=== PATIENT | female | born 1945 | race Caucasian/White ===

== ENCOUNTER → 2018-07-27 12:09 | Outpatient (CLI) | payer OTHER, SELFPAY ==
--- NOTE | 2018-07-27 | DI.MRI.S_ITS ---
PROCEDURE: MR LUMBAR SPINE WO CON INDICATIONS: LUMBAR SPINE PAIN TECHNIQUE: Noncontrast sagittal T1 spin echo and T2 fast echo, sagittal STIR, axial T1 and T2 fast spin echo through the lumbar spine. In cases with scoliosis, additional coronal T2 fast spin echo may be performed. COMPARISON: [facility], CR, XR LUMBAR SPINE 2 OR 3 VIEWS, 06/30/2018, 14:03. FINDINGS: Image quality: Excellent. Alignment and Curvature: Straightening of the normal lumbar lordosis. Bone Marrow: Diffuse endplate degenerative signal changes and numerous scattered small Schmorl's nodes although none of these demonstrate adjacent marrow edema. No acute vertebral body compression fractures. Spinal Cord: Conus medullaris terminates at the T12-L1 level. Visualized cord demonstrates normal signal and size. Paraspinous Soft Tissues: No paravertebral masses. L1-L2: Normal appearance. L2-L3: Normal appearance. L3-L4: Normal appearance. L4-L5: Large right paracentral disc protrusion, with associated moderate central canal narrowing. There is severe effacement of the right lateral recess, raising the possibility of impingement of the descending right L5 nerve root. Minimal narrowing of the left lateral recess. Bilateral facet arthropathy. No foraminal stenosis L5-S1: Central disc protrusion with mild partial effacement of both lateral recesses although symmetric appearance. Bilateral facet arthropathy. Mild central canal narrowing. No definite foraminal stenosis. IMPRESSION: Lower lumbar degenerative disease at L4-L5 and L5-S1, with moderate L4-L5 canal narrowing and severe right-sided subarticular narrowing as above. Mild L5-S1 canal narrowing. No definite foraminal stenosis. Dictated by: Rory Hadley M.D. on 07/27/2018 at 13:38 Approved by: Rory Hadley M.D. on 07/27/2018 at 13:47
== END ==
PROVIDERS: PCP Family Medicine; Visit Provider Orthopaedic Surgery Orthopaedic Surgery of the Spine
DX: M54.5 Low back pain (principal); M51.36 Other intervertebral disc degeneration, lumbar region; M51.37 Other intervertebral disc degeneration, lumbosacral region; M48.061 Spinal stenosis, lumbar region without neurogenic claudication; M48.07 Spinal stenosis, lumbosacral region
CPT/HCPCS: 72148

== ENCOUNTER → 2018-08-31 12:43 | Outpatient (CLI) | payer OTHER, SELFPAY ==
[2018-08-31 12:59] LABS: Hemoglobin 13.6 g/dL (12.0-16.0); Mean Corpuscular HGB Conc 33.2 % (30-36); Mean Corpuscular Hemoglobin 30.6 PG (26-34); Mean Corpuscular Volume 92.3 fL (80-100); Platelet Count 264 X10^3/uL (150-400); Red Blood Cell Count 4.44 X10^6/uL (4.0-5.2); Red Cell Distribution Width 13.5 % (11.6-14.8)
[2018-08-31 13:14] LABS: BUN Creatinine Ratio 15.5 (6-22); Blood Urea Nitrogen 17 mg/dL (7-17); Calcium 9.6 mg/dL (8.4-10.2); Carbon Dioxide 25 mmol/L (22-32); Chloride 100 mmol/L (98-107); Estimated Glomerular Filt Rate 48.7 mL/min (>60); Glucose 169 mg/dL (80-110); HEMOLYSIS 16 (0-50); Potassium 5.1 mmol/L (3.4-5.1); Sodium 136 mmol/L (137-145)
[2018-08-31 14:46] LABS: Hemoglobin A1C% w Est Avg Glu 8.3 % (4.0-6.0)
== END ==
PROVIDERS: Family Provider Family Medicine; PCP Family Medicine; Visit Provider Orthopaedic Surgery Orthopaedic Surgery of the Spine
DX: R73.9 Hyperglycemia, unspecified (principal); Z01.818 Encounter for other preprocedural examination
CPT/HCPCS: 36415; 80048; 83036; 85027

== ENCOUNTER 2018-09-08 14:04 | Day surgery (SDC) | payer OTHER, SELFPAY ==
[2018-09-01 12:01] VITALS: BMI 23.2
--- NOTE | 2018-09-08 | DI.RAD.S_ITS ---
PROCEDURE: XR LUMBAR SPINE 2-3V INDICATIONS: Microdiscectomy TECHNIQUE: Fluoroscopic images were obtained during an operative procedure and submitted for interpretation following the completion of the procedure. COMPARISON: [facility], MR, MR LUMBAR SPINE WO CON, 07/27/2018, 12:43. FINDINGS: These fluoroscopic images were performed for intraoperative localization. On these images, the lumbar spine postoperative changes are seen. On image 2/4, there is a spinal needle seen overlying L4-L5 level inferiorly and posteriorly. Please correlate with intraoperative findings. IMPRESSION: Normal intraoperative examination. Dictated by: Alfonso Mccartney M.D. on 09/08/2018 at 17:14 Approved by: Alfonso Mccartney M.D. on 09/08/2018 at 17:16
[2018-09-08 15:27] VITALS: BP 129/80; PULSE 99; RESP 15; TEMP 36.6; O2SAT 100
[2018-09-08 15:29] VITALS: BMI 23.2
[2018-09-08] MEDS: LACTATED RINGERS 1,000 ML 42 ML IV (15:32)
--- NOTE | 2018-09-08 15:52 | PM.PREOP ---
Pre-operative Note Interval Note History & Physical reviewed/Exam performed by Physician: Yes Changes to H&P: No
--- NOTE | 2018-09-08 16:01 | SUR.OPER ---
Prone on spine table, head in foam head support, padded chest and pelvic supports, gel pad at knees, lower legs supported by pillows; nipples, genitalia and toes free of pressure, arms secured on foam padded arm boards at <90 degrees abduction. Tape over blanket at thigh secured to table.
[2018-09-08] MEDS: CEFAZOLIN 2 GM/100 ML FROZ.PIGGY IV (16:10)
[2018-09-08] MEDS: BUPIVACAINE 0.25% W/ EPI 30 ML VIAL INJ (16:47)
[2018-09-08] MEDS: methylPREDNISolone acet DEPO 40 MG/ML VIAL INJ (16:48)
--- NOTE | 2018-09-08 16:49 | SUR.OPER ---
COCCYX AREA ..RED SKIN..NOT BROKEN NOTED WHEN POSITIOND ON SPINE TABLE
--- NOTE | 2018-09-08 17:26 | P.OP_ITS ---
Operative Date/Time/Diagnoses Date of procedure: 09/08/18 Time of procedure: 16:24 Pre-op diagnosis: 1. 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 L4-5 spinal stenosis Post-op diagnosis: same Procedure & Clinicians Procedure: 1. L4-5 right microdiscectomy 2. Utilization of microsurgical technique and operating microscope Same procedure as scheduled: Yes Indications: Patient has been having chronic back pain and worsening lumbar radiculopathy. Patient failed multiple conservative management with worsening pain weakness and numbness in her lower extremity. Patient has been having difficulty performing activity of daily living. After discussing risks benefits of treatment options, patient elected proceed with surgery. Surgeon: Loly Ramos Histology Specialist: Dolores Canales Click Yes if Unassisted: No Anesthesia Type: General Operative Notes Closure Type: primary Specimen(s): none sent Estimated Blood Loss (mL): 5 Blood products transfused: none Procedure in detail: Patient was seen in the preoperative area. Risks and benefits of the surgery was discussed with the patient. Informed consent was obtained from the patient and placed in the chart. Surgical site was marked. Patient was taken to the operative room. General anesthesia was administered. Prophylactic antibiotic was given to the patient less than 30 min before the incision was made. Patient was placed into a prone position on the Dexter table. Patient's back was then prepped and draped in the sterile fashion. Time- out was performed at this time. Using AP and lateral C-arm imaging the interval between L4-5 was identified and marked on patient's back. A 1 inch incision 1 in from midline was made on the right side. The fascia was incised in line with skin incision. Globus MARS retractors was placed inside the incision and docked onto the L4 lamina. Using microsurgical technique and operating microscope, a L4 laminotomy was performed using a Kerrison rongeur. Liagamentum flavum was resected at the site of the laminotomy. The disc space at L4-5 was identified. Microdiscectomy was perform ed by incising the annulus with #11 blade. Microcurettes and pituitary was used to removed herniated disc fragments of disc from the epidural space. After the microdiskectomy was completed, the area medial lateral superior and inferior to the area of the microdiskectomy was inspected and explored using a micro curette. No other impinging structure was identified. The wound was then irrigated with sterile normal saline. 40 mg Depo-Medrol was placed into the epidural space. The deep fascia was closed with 1-0 Vicryl. The subcutaneous tissue was closed with 2-0 Vicryl. The skin was closed with 4-0 Monocryl. Patient tolerated the procedure well. There were no complications. Patient was transferred recovery room in stable condition. Complications: none Condition: stable Disposition: same day surgery Plan for aftercare: Discharge to home
[2018-09-08 17:37] VITALS: BP 141/72; PULSE 100; RESP 10; TEMP 36.4; O2SAT 98
[2018-09-08 17:42] VITALS: BP 137/69; PULSE 86; RESP 13; TEMP 36.4; O2SAT 98
[2018-09-08 17:45] VITALS: BP 121/62; PULSE 84; RESP 20; TEMP 36.4; O2SAT 98
[2018-09-08 18:00] VITALS: BP 121/62; PULSE 87; RESP 16; TEMP 36.1; O2SAT 97
[2018-09-08 18:05] VITALS: BP 117/90; PULSE 81; RESP 20; TEMP 36.1; O2SAT 98
== END 2018-09-08 18:25 | disposition home or self-care (01) ==
PROVIDERS: Family Provider Family Medicine; PCP Family Medicine; Visit Provider Orthopaedic Surgery Orthopaedic Surgery of the Spine
PROC: (CPT 63030; principal; 2018-09-08 15:45)
DX: M51.16 Intervertebral disc disorders with radiculopathy, lumbar region (principal); M48.061 Spinal stenosis, lumbar region without neurogenic claudication; E78.5 Hyperlipidemia, unspecified; I50.9 Heart failure, unspecified; M79.7 Fibromyalgia; D64.9 Anemia, unspecified; Z79.84 Long term (current) use of oral hypoglycemic drugs
CPT/HCPCS: 63030; 72100; 76000; J0690; J1030; J1100; J2250; J2405; J2704; J3010

== ENCOUNTER → 2021-08-12 13:10 | Outpatient (CLI) | payer OTHER, SELFPAY ==
[2021-08-12 16:48] LABS: COVID19 -Nasal RAPID Negative (Negative)
== END ==
PROVIDERS: Family Provider Family Medicine; PCP Family Medicine; Visit Provider Family Medicine Sleep Medicine
DX: Z20.822 Contact with and (suspected) exposure to COVID-19 (principal)
CPT/HCPCS: 87635; C9803